=== PATIENT | male | born 1950 ===

== ENCOUNTER 2021-02-17 12:13 | Day surgery (SDC) | payer OTHER ==
[~2021-02-17] VITALS: Ht 193 cm; Wt 76.2 kg
[~2021-02-17 12:13] MED LIST: CETI10TA16 PO; CRESTOR40 MG PO; GABA300C18 PO; HYDR25TA PO; HYDROmorphone 2 MG/ML VIAL IVP PRN; IV RINGERS,LACTATED 1000ML 1,000 ML IV SCH; MORPHINE SULFATE 2 MG/ML VIAL. IVP PRN; MULT-496 PO; PROCHLORPERAZINE 10 MG/2 ML VIAL. IVP PRN; ROPI1TAB4 PO; TAMS0.4C97 PO; ceFAZolin SODIUM IV Push 1 GM VIAL. IVP PRN; fentaNYL PF VIAL 100 MCG/2 ML VIAL IVP PRN
[2021-02-17] MEDS ORDERED: GELATIN SPONGE SIZE 100. ONE (12:30)
[2021-02-17] MEDS ORDERED: CHLORHEXIDINE 0.12% 15 ML MOUTHWASH. ONE (12:31)
[2021-02-17] MEDS ORDERED: BUPIVACAINE-EPI 0.5% 30 ML VIAL KIT. ONE (12:31)
[2021-02-17] MEDS ORDERED: CHOL10004 PO (13:10)
[2021-02-17] MEDS ORDERED: FOLI0.4T5 PO (13:11)
[2021-02-17] MEDS ORDERED: FLUT9.9S NS (13:11)
[2021-02-17] MEDS ORDERED: KETO5DRO89 EACHEYE (13:12)
[2021-02-17] MEDS ORDERED: HYDR-2761 PO (13:12)
[2021-02-17] MEDS ORDERED: TOPI25TA7 PO (13:13)
[2021-02-17] MEDS ORDERED: MELA3TAB43 PO (13:13)
[2021-02-17] MEDS ORDERED: ONDANSETRON PF 4 MG/2 ML VIAL. ONE (14:35)
[2021-02-17] MEDS ORDERED: ROCURONIUM 50 MG/5 ML VIAL. ONE (14:35)
[2021-02-17] MEDS ORDERED: LIDOCAINE 2% PF 5 ML VIAL. ONE (14:35)
[2021-02-17] MEDS ORDERED: PROPOFOL 10 MG/ML (20ML) VIAL. IV ONE (14:35)
[2021-02-17] MEDS ORDERED: DEXAMETHASONE SOD PHOS 4 MG/ML VIAL ONE (14:35)
[2021-02-17] MEDS ORDERED: fentaNYL PF VIAL 100 MCG/2 ML VIAL ONE (15:58)
[2021-02-17] MEDS ORDERED: SEVOFLURANE > 120 MINUTES. IH ONE (16:39)
[2021-02-17] MEDS ORDERED: NEOSTIGMINE METHYLSULFATE 5 MG/5 ML SYRINGE. ONE (16:49)
[2021-02-17] MEDS ORDERED: GLYCOPYRROLATE 1 MG/5 ML VIAL. ONE (16:49)
--- NOTE | 2021-02-17 17:16 | PDOC4 ---
OPERATIVE NOTE Date: Date: February 17, 2021 Pre-Op Diagnosis: Dementia HTN CAD caries, non restorable teeth # 4,5,6,7,10,11,14,15,17,18,20,21,22,23,24,25,26,27,28,30,32 bilateral mandibular patricia Bilateral maxillary exostosis Post-Op Diagnosis: same Procedure Performed: surgical removal of : caries, non restorable teeth # 4,5,6,7,10,11,14,15,17,18,20,21,22,23,24,25,26,27,28,30,32 bilateral mandibular patricia Bilateral maxillary exostosis Surgeon: socorro Anesthesia Type: mcnitt Blood Loss: 150 Specimans Obtained: all teeth disposed of in OR Findings: see dictation caries, non restorable teeth # 4,5,6,7,10,11,14,15,17,18,20,21,22,23,24,25,26,27,28,30,32 bilateral mandibular patricia Bilateral maxillary exostosis Complications: none Operative Note: see note ZACKARY SLATER DMD February 17, 2021 17:16
[2021-02-17] MEDS ORDERED: HYDROcodone/APAP 5/325MG 1 TAB TABLET PO ONE (17:45)
[2021-02-17 18:05] VITALS: BP 121/68
--- NOTE | 2021-02-17 18:23 | OP ---
DATE OF SURGERY: 02/17/2021 SERVICE: stapler coil unit. ATTENDING PHYSICIAN: Shlomo Ramirez DMD PREOPERATIVE DIAGNOSES: 1. Dementia. 2. Coronary artery disease. 3. Hypertension. 4. Caries, nonrestorable teeth number 4, 5, 6, 7, 10, 11, 14, 15, 17, 18, 20, 21, 22, 23, 24, 25, 26, 27, 28, 30, 32. He also has bilateral mandibular patricia. He also has bilateral maxillary exostosis. PROCEDURE PERFORMED: Removal of aforementioned teeth numbers 4, 5, 6, 7, 10, 11, 14, 15, 17, 18, 20, 21, 22, 23, 24, 25, 26, 27, 28, 30, 32. Removal of bilateral mandibular patricia and removal of bilateral maxillary exostosis and then alveoloplasty in all 4 quadrants; upper right, upper left, lower right, lower left. BRIEF HISTORY: The patient is referred to our clinic by the [facility] for removal of aforementioned teeth, considering his dementia and deteriorating status such as sitting was escalated to the OR for setting of care. History and physical was performed in our clinic and permit was obtained from the patient. DRAINS PLACED: None. SPECIMENS SENT: None. All teeth were disposed of in the OR. ESTIMATED BLOOD LOSS: 150 mL. COMPLICATIONS: No complications noted. HOSPITAL COURSE: After the history and physical was updated in the preoperative holding area, the patient was transported by the Anesthesia service to the operating suite, placed in the supine position. General anesthesia was induced. The patient was then intubated with an oral intubation without complications. The tube was secured to the upper left face. A timeout was initiated. All perioperative staff was in agreement. A moistened throat pack was placed in the oropharynx. The mouth was then cleansed. The patient was prepped and draped in a normal sterile fashion. A 25 mL of 0.5% Marcaine with 1:200,000 epinephrine was administered to the proposed surgical areas and also the mandibular patricia and exostosis. Then, a 15 blade was utilized to create a full-thickness mucoperiosteal flap in the upper right, upper left, lower right, lower left quadrants. The mucosa was reflected buccally and lingually over the lower mandibular patricia to gain access. Rotary instrumentation was utilized to remove the patricia bilaterally in the exostosis on the upper right, upper left. All teeth were then luxated, elevated and extracted with hand instruments and extraction sites were then curetted with curettage to remove periapical granulomatous tissue. Alveoloplasty was performed with rongeurs and rotary instrumentation smoothed to digital manipulation. All undercuts were removed and smoothed in this fashion. All sites were then lavaged with copious normal sterile saline and each extraction site was then packed with Gelfoam and oversewn with 3-0 chromic gut sutures in a running locked fashion in all quadrants; upper right, upper left, lower right, lower left. At the completion of the procedure, the oral cavity was then lavaged and suctioned. The moistened throat pack was removed. An OG was passed and the stomach was decompressed. The patient was then returned to the care of Anesthesia where he was awakened and extubated and transported to the PACU in a stable condition. REINIER DR: Dario TID: [id number]
== END 2021-02-17 18:35 | disposition home or self-care (01) ==
LOC: SURG 12:13
PROVIDERS: ATTEND Dentist Oral and Maxillofacial Surgery
DX: K02.63 Dental caries on smooth surface penetrating into pulp (principal); I25.10 Atherosclerotic heart disease of native coronary artery without angina pectoris; I10 Essential (primary) hypertension; F03.90 Unspecified dementia, unspecified severity, without behavioral disturbance, psychotic disturbance, mood disturbance, and anxiety; E78.00 Pure hypercholesterolemia, unspecified; F41.9 Anxiety disorder, unspecified; F32.9 Major depressive disorder, single episode, unspecified; G47.30 Sleep apnea, unspecified; Z87.891 Personal history of nicotine dependence; Z79.899 Other long term (current) drug therapy; Z98.890 Other specified postprocedural states; Z88.8 Allergy status to other drugs, medicaments and biological substances
CPT/HCPCS: 41874; 41899; 87426; A4930; J0690; J1100; J2405; J2704; J2710; J3010; J3490; A4657